=== PATIENT | male | born 1960 | race Caucasian/White ===

== ENCOUNTER 2024-04-14 08:57 | Emergency (ER) | payer OTHER, SELFPAY ==
[2024-04-14 09:02] VITALS: BP 144/87
--- NOTE | 2024-04-14 09:23 | ED.GENMED ---
History of Present Illness
General
Chief Complaint: Back Pain
Source: patient
Exam Limitations: none
Time Seen by Provider: 04/14/24 09:06
History of Present Illness
History of Present Illness:
63-year-old male presents with worsening lower back pain. Is been progressively worsening over 2 weeks. At times the pain is to the point where he cannot ambulate. He denies numbness to the legs. He denies any bowel or bladder dysfunction. He
denies any perianal anesthesia. He denies a fever. No known injury but he works out regularly and has a history of heavy weightlifting. He has been using Aleve or Advil without any significant relief. The pain is much worse when he bears weight.
No other complaints at this time
Past History
Past History
ED Past Medical History: CAD, HTN, Hypercholesterolemia and Other (Sleep apnea)
ED Past Surgical History: Orthopedic and Urological
Social History
Tobacco: Former smoker
Phy Exam
Physical Exam
Physical Exam:
General: Well-appearing male no acute respiratory distress
HEENT: Normocephalic atraumatic
Musculoskeletal exam: Patient is tender to the lower lumbar spine and just to the right of midline. He has good range of motion to the lower extremities
Neurologic exam: Bilateral patellar reflexes 2+. Bilateral Achilles reflexes 1+. Negative straight leg raise. Able to lift leg up against gravity. Good strength. Good sensation bilateral lower extremities
Skin is warm no rash
Course
Orders/Labs/Results
Orders:
Orders
04/14/24 09:19
Ketorolac [Toradol] 15 mg IV NOW STA
diazePAM [Valium Injection] 5 mg IV NOW STA
CR Lumbar Spine 2 Or 3 Views Urgent
Comment:
Reason For Exam: back pain
Vital Signs
Initial and Last Documented VS:
Initial Vital Signs
Temp Pulse Resp BP Pulse Ox
97.9 F 71 16 144/87 98
04/14/24 09:02 04/14/24 09:02 04/14/24 09:02 04/14/24 09:02 04/14/24 09:02
Last Documented Vital Signs
Temp Pulse Resp BP Pulse Ox
97.9 F 71 16 144/87 98
04/14/24 09:02 04/14/24 09:02 04/14/24 09:02 04/14/24 09:02 04/14/24 09:02
MDM/Problems Addressed
Differential Diagnosis Includes:
Low back pain. No red flags to suggest cauda equina. No fever to suggest infectious source. No significant leg pain. Question degenerative disc disease versus lumbar strain.
X-rays pending. Will treat with Toradol and Valium. At this time no emergent indication for MRI
*Critical Care Note
Total Time (30-74mins, 75-104mins- exclusive of procedures): Not Applicable
Update Note
Update Note:
Patient feeling much better after Toradol and Valium. X-ray shows degenerative disc disease at L4-L5 and L5-S1. He is now ambulatory back to his baseline amount of discomfort. Will send patient home with prescription for prednisone and muscle
relaxers. Recommend follow-up. Stable for discharge
ED Attending Note
-
Portions of this chart may have been created with voice recognition software.� Occasional wrong word or��sound alike� substitutions may have occurred due to the inherent limitations of voice recognition software.
Discharge Plan
Departure
Patient Disposition: Home (Routine Discharge)
Date of Disposition: 04/14/24
Time of Disposition: 10:38
Patient with high blood pressure during this ER visit?: No
Discharge Problem:
Degenerative disc disease
Instructions: Low Back Pain (DC)
Prescriptions:
New
prednisone 10 mg Tablet
See Rx Instructions .ROUTE .COMPLEX Qty: 30 0RF
Rx Instructions:
Take By Mouth:
40 mg daily x3 days, 30 mg daily x3 days,
20 mg daily x3 days, 10 mg daily x3 days.
diazepam [Valium] 5 mg tablet
5 mg PO TID PRN (Reason: muscle spasm) Qty: 10 0RF
No Action
meclizine 25 MG tablet
25 mg PO TID PRN (Reason: Dizziness) Qty: 15 0RF
ondansetron 4 MG tablet,disintegrating
4 mg PO TIDPRN PRN (Reason: Nausea) Qty: 15 0RF
Referrals:
Jeffrey Mcmanus MD [Active] -
Jeffry Kunz MD [Family Provider] -
Activity Restrictions/Additional Instructions:
Rest. Use medicine as prescribed. Follow-up with specialist. Return if worse otherwise
Interventions
Interventions:
*Risk Screen - Suicide Last Done: 04/14/24 09:02
*General Assessment Last Done: 04/14/24 09:13
*Neglect/Abuse Screening Last Done: 04/14/24 09:02
ED- Fall Risk Assessment Last Done: 04/14/24 09:13
*ED COVID-19 Vaccine History Last Done: 04/14/24 09:09
ED-Musculoskeletal Assessment Last Done: 04/14/24 09:13
Discharge Date and Time
Print Language: HUNGARIAN
[2024-04-14] MEDS: TORADOL 15 MG IV (09:37)
[2024-04-14] MEDS: VALIUM INJECTION 5 MG IV (09:41)
[2024-04-14 10:57] VITALS: BP 136/74
== END 2024-04-14 11:00 | disposition home or self-care (01) ==
LOC: EMR 08:57
PROVIDERS: EMERGENCY PHYSICIAN Emergency Medicine; FAMILY PHYSICIAN Internal Medicine
DX: M51.36 Other intervertebral disc degeneration, lumbar region (principal); M51.37 Other intervertebral disc degeneration, lumbosacral region; Z87.891 Personal history of nicotine dependence
CPT/HCPCS: 99284; 96374; 96375; 72100